=== PATIENT | male | born 1990 | race Hispanic/Latino ===

== ENCOUNTER 2018-10-05 07:42 | Emergency (ER) | payer OTHER, MEDICAID, SELFPAY ==
[2018-10-05 07:45] VITALS: BP 130/78; PULSE 86; RESP 13; TEMP 36.6; O2SAT 99
--- NOTE | 2018-10-05 08:03 | ED.SYNCOPE ---
HPI - Syncope General Chief Complaint: Syncope Stated Complaint: Headache, nausea due to fall Time Seen by Provider: 10/05/18 07:53 Source: patient Mode of arrival: ambulatory Limitations: no limitations History of Present Illness HPI narrative: 28-year-old otherwise healthy male here for evaluation of an episode where he stated that he woke up. Was very thirsty so went to drink some Gatorade. He states that after he was drinking Gatorade he had an episode where he felt like his heart was beating fast and then he fell and hitting his head. Had a unknown period of time a loss of consciousness. Patient states that he does not remember falling. He states that when he woke up he had episode of vomiting afterwards. He went to take a shower. Since then he started to have a severe headache. has never had this happen before. Reports no other injuries from the event. States that his headache is on the top of his head. No vision changes. Related Data Home Medications Medication Instructions Recorded Confirmed No Known Home Medications 10/05/18 10/05/18 Allergies Allergy/AdvReac Type Severity Reaction Status Date / Time No Known Drug Allergies Allergy Verified 10/05/18 11:11 Review of Systems Constitutional Denies fever(s), Denies frequent falls, Reports headache(s) and Denies weakness ENT Ears, Nose, Mouth, and Throat: Denies vertigo, Reports headache(s) and Denies disequilibrium Cardiovascular Denies chest pain, Reports syncope, Reports rapid heart rate, Reports palpitations and Denies dyspnea Respiratory Denies dyspnea Gastrointestinal Gastrointestinal: Denies abdominal pain, Denies change in stool character, Reports nausea and Reports vomiting Genitourinary Denies dysuria Musculoskeletal Denies myalgias and Denies arthralgias Integumentary/Breasts Denies lesions and Denies rash Neurologic Denies abnormal speech, Denies confusion, Denies vertigo, Reports syncope, Denies frequent falls, Reports headache(s), Denies radicular pain, Denies disequilibrium and Denies weakness Psychiatric Denies confusion Endocrine Reports palpitations Hematologic/Lymphatic Denies easy bleeding and Denies easy bruising [facility] Medical History Healthy adult (Acute) Social History (Updated 10/05/18 @ 08:13 by Francisco Javier Erazo DO) marital status: lives independently: Yes Smoking Status: Never smoker Social History (Updated 10/05/18 @ 08:13 by Francisco Javier Erazo DO) marital status: lives independently: Yes Smoking Status: Never smoker Exam Initial Vital Signs Initial Vital Signs: Vital Signs Temperature 98 F 10/05/18 07:45 Pulse Rate 86 10/05/18 07:45 Respiratory Rate 13 10/05/18 07:45 Blood Pressure 130/78 10/05/18 07:45 Pulse Oximetry 99 10/05/18 07:45 Const General: cooperative, comfortable, well developed, well groomed and No acute distress Orientation: alert, awake and oriented x3 HENMT Head: normal to inspection Ears: hearing grossly normal bilaterally and TM's normal bilaterally Nose: external nose normal Face and sinus: normal facial exam Eyes Pupils: PERRL EOM: EOM intact bilaterally Chest Other: Tenderness to palpation left chest wall Resp Effort & Inspection: normal respiratory effort Auscultation: clear to auscultation bilaterally Cardio Rate: regular rate Rhythm: regular rhythm Pulses: radial pulses present GI Inspection: non-distended Palpation: soft, No firm and No tender Back/Spine/Pelvis Cervical Spine: No collar present, No cervical spasm, No cervical spinal tenderness and No step off deformity Skin Lesions: no lesions Rashes: no rashes Neuro General: alert, awake and oriented x3 Cognition: normal cognition Speech: speech normal Gait: normal gait Motor: muscle tone normal throughout Sensory Exam: no sensory deficits noted Extrem General: normal to inspection and capillary refill normal Psych Appearance: grossly normal and well kempt Speech and Movement: speech and movement normal Mood: congruent mood Affect: normal affect Attitude: cooperative Thought Process: normal Thought Content: normal Course Orders Ordered: ED Orders 10/05/18 08:00 Basic Metabolic Panel Stat Complete Blood Count AUTO DIFF Stat 10/05/18 08:04 XR ribs LT min 3V w CXR1V Stat 10/05/18 08:05 CT head/brain wo con Stat EKG-12 Lead Stat Discontinued Medications Acetaminophen (Tylenol) 975 mg PO NOW ONE Stop: 10/05/18 09:50 Last Admin: 10/05/18 10:46 Dose: 975 mg Sodium Chloride (Normal Saline 0.9%) 1,000 mls @ 1,000 mls/hr IV BOLUS ONE Stop: 10/05/18 09:03 Last Infusion: 10/05/18 10:46 Dose: 0 mls/hr Admin: 10/05/18 08:24 Dose: 1,000 mls/hr Vital Signs - 8 hr 10/05/18 07:45 10/05/18 09:58 10/05/18 10:09 Temperature 98 F Pulse Rate 86 88 Pulse Rate [Orthostatic Lying] 76 Pulse Rate [Orthostatic Sitting] 75 Pulse Rate [Orthostatic Standing] 80 Respiratory Rate 13 12 Blood Pressure 130/78 Blood Pressure [Orthostatic Lying] 114/72 Blood Pressure [Orthostatic Sitting] 125/80 Blood Pressure [Orthostatic Standing] 125/74 Blood Pressure [Right Arm] 118/67 Pulse Oximetry 99 100 10/05/18 11:30 Temperature Pulse Rate 71 Pulse Rate [Orthostatic Lying] Pulse Rate [Orthostatic Sitting] Pulse Rate [Orthostatic Standing] Respiratory Rate 15 Blood Pressure Blood Pressure [Orthostatic Lying] Blood Pressure [Orthostatic Sitting] Blood Pressure [Orthostatic Standing] Blood Pressure [Right Arm] 117/68 Pulse Oximetry 100 MDM - Syncope Lab Data Attestation: I reviewed the patient's lab results. Result diagrams: 10/05/18 08:00 10/05/18 08:00 Lab Results 10/05/18 10/05/18 Range/Units 08:00 08:00 WBC 10.2 (4.5-11.0) X10^3/uL RBC 5.55 (4.5-5.9) X10^6/uL Hgb 16.7 (13.5-17.5) g/dL Hct 49.3 (41-53) % MCV 88.8 (80-100) fL MCH 30.1 (26-34) PG MCHC 34.0 (30-36) % RDW 13.6 (11.6-14.8) % Plt Count 244 (150-400) X10^3/uL Neut % (Auto) 79.2 H (50-75) % Lymph % (Auto) 16.7 L (25-40) % [place] % (Auto) 3.6 (3-14) % Eos % (Auto) 0.1 L (2-4) % Baso % (Auto) 0.4 (0-2) % Neut # (Auto) 8100 H (2018-8256) /uL Lymph # (Auto) 1700 (7519-8814) /uL [place] # (Auto) 400 (0-900) /uL Eos # (Auto) 0 (0-450) /uL Baso # (Auto) 0 (0-100) /uL Sodium 144 (137-145) mmol/L Potassium 3.9 (3.4-5.1) mmol/L Chloride 102 (98-107) mmol/L Carbon Dioxide 29 (22-32) mmol/L BUN 13 (9-20) mg/dL Creatinine 0.60 L (0.66-1.25) mg/dL Estimated GFR > 60.0 (>60) mL/min BUN/Creatinine Ratio 21.7 (6-22) Glucose 110 H (70-100) mg/dL Calcium 9.8 (8.4-10.2) mg/dL Imaging Data CT scan - head: Radiologist's impression: [address] [id number] [address] Scan Report Signed Patient: Haley Luong#: [id number] : 1990Acct:[id number] Age/Sex: MDate of Service: 10/05/18 Loc: ED Accession Number: [id number] Procedure: CT head/brain wo con Ordering Provider: Francisco Javier Erazo D.O. PROCEDURE: CT HEAD/BRAIN WO CON INDICATIONS: Syncope, severe headache, amnesia TECHNIQUE: Noncontrast 4.5 mm thick angled axial sections acquired from the foramen magnum to the vertex, with coronal and sagittal reformats. For radiation dose reduction, the following was used: automated exposure control, adjustment of mA and/or kV according to patient size. COMPARISON: None. FINDINGS: Image quality: Excellent. CSF spaces: Basal cisterns are patent. No extra-axial fluid collections. Ventricles are normal in size and shape. Brain: No midline shift. No intracranial masses or hemorrhage. Breaux-white matter interface is normal. Skull and face: Calvarium and visualized facial bones are intact, without suspicious lesions. Sinuses: Visualized sinuses and mastoids are clear. IMPRESSION: CT head without acute intracranial abnormalities. Dictated by: Bhaskar Vaughan M.D. on 10/05/2018 at 8:27 Approved by: Bhaskar Vaughan M.D. on 10/05/2018 at 8:28 X-ray ribs: Radiologist's impression: [address] [id number] XRay Report Signed Patient: Norma LuongR#: [id number] : 1990Acct:[id number] Age/Sex: 28 / MDate of Service: 10/05/18 Loc: ED Accession Number: [id number] Procedure: XR ribs LT min 3V w CXR1V Ordering Provider: Francisco Javier Erazo D.O. PROCEDURE: XR RIBS LT MIN 3V W CXR1V INDICATIONS: Fall left-sided rib pain TECHNIQUE: 2 views of the left ribs were acquired, along with a single view chest. COMPARISON: None. FINDINGS: Surgical changes and devices: None. Bones and chest wall: No fractures or dislocations. No suspicious bony lesions. Overlying soft tissues appear unremarkable. Lungs and pleura: No pleural effusions or pneumothorax. Lungs appear clear. Mediastinum: Mediastinal contours appear normal. Heart size is normal. IMPRESSION: Negative for displaced left rib fracture. Unremarkable chest film. Dictated by: Herb Eric M.D. on 10/05/2018 at 9:42 Approved by: Herb Eric M.D. on 10/05/2018 at 9:43 ECG Data Attestation: I personally reviewed and interpreted this ECG as follows: Prior ECG tracings: not available for review Interpretation: Sinus rhythm Ventricular rate of 90 Normal axis Normal QRS Normal QTC No ST T wave changes MDM Narrative Medical decision making narrative: During his stay here in the emergency department patient had no ectopy on his monitoring. His head CT was unremarkable. His labs are unremarkable. No fractures noted on his rib x-rays. He states that his headache much improved with the Tylenol. Patient's symptoms did seem vasovagal. He has no murmurs. Was observed here in the emergency department for more than 4 hours without any ectopy. Low suspicion for cardiac arrhythmia. Will hold on further workup for now. Patient was given strict return precautions and follow-up instructions. He was given phone numbers to contact to help him establish her primary provider. Patient expressed understanding and agreement with plan. Discharge Plan Departure Patient Disposition: Home Clinical Impression: Syncope Qualifiers: Syncope type: unspecified Qualified Code(s): R55 - Syncope and collapse Instructions: DI for Syncope in Adults (Fainting) Activity Restrictions/Additional Instructions: Recommend you contact 360 help you establish a primary provider here in the area. Return to the emergency department for any new or worsening symptoms. Prescriptions: No Action No Known Home Medications RF: 0
[2018-10-05 08:13] LABS: Add Manual Diff / Slide Review NO; Basophils Absolute Auto 0 /uL (0-100); Basophils Percent Auto 0.4 % (0-2); Eosinophils Absolute Auto 0 /uL (0-450); Eosinophils Percent Auto 0.1 % (2-4); Hematocrit 49.3 % (41-53); Hemoglobin 16.7 g/dL (13.5-17.5); Lymphocytes Absolute Auto 1700 /uL (1100-4500); Lymphocytes Percent Auto 16.7 % (25-40); Mean Corpuscular Hemoglobin 30.1 PG (26-34); Mean Corpuscular Volume 88.8 fL (80-100); Monocytes Absolute Auto 400 /uL (0-900); Monocytes Percent Auto 3.6 % (3-14); Neutrophils Absolute Auto 8100 /uL (1500-7000); Neutrophils Percent Auto 79.2 % (50-75); Platelet Count 244 X10^3/uL (150-400); Red Blood Cell Count 5.55 X10^6/uL (4.5-5.9); Red Cell Distribution Width 13.6 % (11.6-14.8); White Blood Cell Count 10.2 X10^3/uL (4.5-11.0)
[2018-10-05 08:18] LABS: BUN Creatinine Ratio 21.7 (6-22); Blood Urea Nitrogen 13 mg/dL (9-20); Calcium 9.8 mg/dL (8.4-10.2); Carbon Dioxide 29 mmol/L (22-32); Chloride 102 mmol/L (98-107); Estimated Glomerular Filt Rate > 60.0 mL/min (>60); Glucose 110 mg/dL (70-100); HEMOLYSIS 23 (0-50); Potassium 3.9 mmol/L (3.4-5.1); Sodium 144 mmol/L (137-145)
[2018-10-05] MEDS: SODIUM CHLORIDE 0.9% 1,000 ML 1000 ML IV (08:24)
[2018-10-05 09:58] VITALS: BP 118/67; PULSE 88; RESP 12; O2SAT 100
[2018-10-05 10:09] VITALS: BP 114/72; BP 125/74; BP 125/80; PULSE 75; PULSE 76; PULSE 80
--- NOTE | 2018-10-05 10:10 | PC.NURSE ---
Patient expressed feeling dizzy when he sat up and then also upon standing Attempted an ambulation trial and patient stated felt too dizzy to do so
[2018-10-05] MEDS: ACETAMINOPHEN 325 MG TABLET 975 MG PO (10:46)
[2018-10-05 11:30] VITALS: BP 117/68; PULSE 71; RESP 15; O2SAT 100
--- NOTE | 2018-10-05 11:59 | PC.NURSE ---
Ambulated patient around the ER and he stated that he feels much better and did not experience any dizziness
--- NOTE | 2018-10-05 12:15 | PC.NURSE ---
obtained patient care. Patient reports some slight improvement of his headache. Denies dizziness at rest.
== END 2018-10-05 12:17 | disposition home or self-care (01) ==
PROVIDERS: Emergency Provider Emergency Medicine
DX: R55 Syncope and collapse (principal); R00.0 Tachycardia, unspecified; S09.90XA Unspecified injury of head, initial encounter; R11.10 Vomiting, unspecified; R51 Headache; W18.30XA Fall on same level, unspecified, initial encounter
CPT/HCPCS: 36591; 70450; 71101; 80048; 85025; 93005; 93041; 96360; 96361; 99284; 99285